=== PATIENT | male | born 1975 | race Caucasian/White ===

== ENCOUNTER 2023-02-23 19:02 | Emergency (ER) | payer SELFPAY ==
[~2023-02-23] VITALS: Ht 172.7 cm; Wt 81.6 kg
[2023-02-23] MEDS ORDERED: DICYCLOMINE HCL LIQUID 20 MG, ALUMINUM HYD/MAG/SIMETHICONE 30 ML, LIDOCAINE VISCOUS 2% ... PO ONE ×3 (19:10)
[2023-02-23] MEDS ORDERED: ALUMINUM HYD/MAG/SIMETHICONE 30 ML UDC ONE (19:14)
[2023-02-23] MEDS ORDERED: DICYCLOMINE HCL LIQUID 10 MG/5 ML UDC ONE (19:14)
[2023-02-23 19:20] VITALS: BP 211/110; PULSE 66; RESP 20; TEMP 98.1; O2SAT 98
[2023-02-23] MEDS ORDERED: ONDANSETRON 4 MG ODT PO ONE (19:20)
[2023-02-23] MEDS ORDERED: MORPHINE SULFATE 4 MG/ML SYR IVP ONE (19:35)
[2023-02-23] MEDS ORDERED: LABETALOL 20 MG/4 ML VIAL IVP ONE (19:35)
[2023-02-23 20:13] LABS: EOSINOPHILS # (AUTO) 0.7 K/uL (0-0.4); EOSINOPHILS % (AUTO) 3.7 % (0.0-4.0); HEMATOCRIT 43.4 % (36-52); HEMOGLOBIN 14.7 g/dL (12.0-18.0); LYMPHOCYTES # (AUTO) 1.5 K/uL (2.0-11.5); LYMPHOCYTES % (AUTO) 7.8 % (20.5-51.1); MEAN CORPUSCULAR HEMOGLOBIN 29 pg (27-31); MEAN CORPUSCULAR HGB CONC 34 g/dL (33-37); MEAN CORPUSCULAR VOLUME 86.6 fL (80-94); NEUTROPHILS # (AUTO) 13.7 K/uL (1.8-7.7); NEUTROPHILS % (AUTO) 72.5 % (42.2-75.2); PLATELET COUNT (AUTO) 207 K/uL (140-450); RED BLOOD CELL COUNT(AUTO) 5.01 MIL/uL (4.20-6.10); RED CELL DISTRIBUTION WIDTH 13.8 % (11.6-13.7)
[2023-02-23] MEDS ORDERED: MORPHINE SULFATE 4 MG/ML SYR IM ONE (20:15)
[2023-02-23 20:33] LABS: ANION GAP 17.2 (8-16); CALCIUM 9.2 mg/dL (8.5-10.1); CARBON DIOXIDE 25.7 mmol/L (21-32); CREATININE 1.2 mg/dL (0.6-1.3)
[2023-02-23 20:37] LABS: POTASSIUM 2.9 mmol/L (3.5-5.1)
[2023-02-23] MEDS ORDERED: HALOPERIDOL IM 5 MG/ML VIAL IM ONE (21:05)
[2023-02-23] MEDS ORDERED: LORazepam 2 MG/ML VIAL ONE (21:19)
[2023-02-23] MEDS ORDERED: SODIUM BICARBONATE 8.4% PFS 50 MEQ/50 ML SYR IVP ONE (21:24)
[2023-02-23] MEDS ORDERED: EPINEPHrine PFS 0.1 MG/ML SYR IVP ONE (21:24)
[2023-02-23] MEDS ORDERED: CALCIUM CHLORIDE 10% 100 MG/ML SYR IVP ONE (21:24)
[2023-02-24 03:08] VITALS: BP 125/95; PULSE 92; RESP 18; TEMP 98.3; O2SAT 98
== END 2023-02-23 22:03 ==
LOC: MED 19:02
DX: I46.9 Cardiac arrest, cause unspecified (principal); I10 Essential (primary) hypertension
CPT/HCPCS: 31500; 36415; 71045; 80048; 83690; 84484; 85025; 85379; 92950; 93005; 99291; 99292; J0171; J1630; J2060; J2270; Q0162; G0378